=== PATIENT | male | born 1995 | race Caucasian/White ===

== ENCOUNTER 2022-09-21 20:02 | Emergency (ER) | payer SELFPAY ==
[~2022-09-21] VITALS: Ht 170.2 cm; Wt 68.0 kg
[2022-09-21 22:16] VITALS: BP 105/72
== END 2022-09-21 22:17 | disposition home or self-care (01) ==
LOC: ER 20:02
DX: T65.91XA Toxic effect of unspecified substance, accidental (unintentional), initial encounter (principal); X58.XXXA Exposure to other specified factors, initial encounter
CPT/HCPCS: 93005; 99291